=== PATIENT | male | born 1950 | race Caucasian/White ===

== ENCOUNTER 2017-07-27 17:26 | Emergency (ER) | payer BC, OTHER ==
[~2017-07-27] VITALS: Ht 165.1 cm; Wt 98.7 kg
[~2017-07-27 17:26] MED LIST: Z.0.NO CURRENT MEDS
[2017-07-27 17:34] VITALS: BP 130/74; PULSE 67; RESP 16; TEMP 98.2; O2SAT 95
[2017-07-27] MEDS ORDERED: HTN MED (17:43)
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
[2017-07-27] MEDS ORDERED: KETOROLAC TROMETHAMINE 60 MG/2 ML (IM) VIAL IM ONE ×2 (20:30→21:00)
--- NOTE | 2017-07-27 20:36 | RADRPT ---
EXAM DATE/TIME: 07/27/2017 19:52 [facility] COMPARISON: HIP RIGHT (AP&LAT 2/3VWS) W AP PELVIS, July 27, 2017, 18:36. INDICATIONS : Right hip pain. RADIATION DOSE: 21.64 CTDIvol (mGy) MEDICAL HISTORY : None SURGICAL HISTORY : Right lower extremity reattachment. ENCOUNTER: Initial ACUITY: 4 - 6 days PAIN SCALE: 10/10 LOCATION: Right hip TECHNIQUE: Volumetric scanning of the hip was performed. Using automated exposure control and adjustment of the mA and/or kV according to patient size, radiation dose was kept as low as reasonably achievable to o btain optimal diagnostic quality images. DICOM format image data is available electronically for rev iew and comparison. FINDINGS: BONES: No evidence of fracture. Alignment is within normal limits. There is chronic deformity seen at the s uperior lateral aspects of the iliac crest regions bilaterally being more prominent on the right. Deg enerative changes seen in the lower lumbar spine. JOINTS: No evidence of joint narrowing or effusion. SOFT TISSUES: Muscles, tendons and neurovascular structures are grossly unremarkable. No evidence of mass, organize d fluid collection, or foreign body. CONCLUSION: No acute fracture is seen. There is chronic deformity at the superior lateral iliac crest regions teo ng more prominent on the right. Dick Clark MD on July 27, 2017 at 20:32 Board Certified Radiologist. This report was verified electronically.
[2017-07-27] MEDS ORDERED: MEDR4PAK PO (20:55)
[2017-07-27] MEDS ORDERED: TRAM50TA PO (20:56)
== END 2017-07-27 21:19 | disposition home or self-care (01) ==
LOC: PHEFT 17:26
DX: M54.31 Sciatica, right side (principal); I10 Essential (primary) hypertension
CPT/HCPCS: 73502; 73700; 96372; 99285; J1885

== ENCOUNTER 2017-09-09 11:59 | Inpatient (IN) | payer OTHER, MEDICARE ==
[~2017-09-09] VITALS: Ht 165.1 cm; Wt 97.8 kg
[~2017-09-09 11:59] MED LIST changes: +HTN MED; +MEDR4PAK PO; +TRAM50TA PO; -Z.0.NO CURRENT MEDS
[2017-09-09 12:08] VITALS: BP 134/70; PULSE 83; RESP 16; TEMP 99.9; O2SAT 96
[2017-09-09] MEDS ORDERED: AMLO5TAB2 PO (12:56)
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
[2017-09-09] MEDS ORDERED: CLINDAMYCIN INJ 600 MG in SODIUM CHLORIDE 0.9% INJ 100 ML IV ONE (13:30)
[2017-09-09 13:39] LABS: AUTOMATED NEUTROPHIL # 5.5 TH/MM3 (1.8-7.7); BASOPHIL # 0.1 TH/MM3 (0-0.2); BASOPHIL % 1.4 % (0.0-2.0); EOSINOPHIL # 0.2 TH/MM3 (0-0.4); EOSINOPHIL % 1.9 % (0.0-4.0); HEMATOCRIT 45.4 % (39.0-51.0); HEMO FLAGS DIFF FINAL; LYMPH % 22.3 % (9.0-44.0); LYMPHOCYTE # 1.9 TH/MM3 (1.0-4.8); MEAN CELL VOLUME 94.8 FL (80.0-100.0); MEAN CORPUSCULAR HEMOGLOBIN 31.4 PG (27.0-34.0); MEAN CORPUSCULAR HGB CONC 33.2 % (32.0-36.0); MONO % 9.9 % (0.0-8.0); NEUT % 64.5 % (16.0-70.0); PLATELET COUNT 241 TH/MM3 (150-450); RED BLOOD COUNT 4.79 MIL/MM3 (4.50-5.90); RED CELL DISTRIBUTION WIDTH 14.6 % (11.6-17.2); WHITE BLOOD COUNT 8.5 TH/MM3 (4.0-11.0)
--- NOTE | 2017-09-09 13:48 | RADRPT ---
EXAM DATE/TIME: 09/09/2017 13:27 [facility] COMPARISON: HIP RIGHT (AP&LAT 2/3VWS) W AP PELVIS, July 27, 2017, 18:36. INDICATIONS : Right lower leg pain and reddness possible infection. MEDICAL HISTORY : Fracture right lower leg. SURGICAL HISTORY : Right lower leg reattachment. ENCOUNTER: Initial ACUITY: 1 month PAIN SCORE: 6/10 LOCATION: Right anterior lower leg. FINDINGS: The appearance of the tibia is grossly abnormal. There is an old fracture of the tibia. There is exte nsive heterotopic bone. There is fracture of the fibula as well. The tibia and fibula have fused toge ther. Due to the irregularity of the cortical surface I cannot exclude an underlying osteomyelitis. There severe degenerative changes in the tibiotalar joint. The talus is not identified presumably rep resenting a collar dome fracture. The ankle mortise is fused. CONCLUSION: 1. There is an old, severe fracture involving the tibia, fibula, the ankle and right foot. There is e xtensive heterotopic bone. There is some areas of cortical irregularity and as such an underlying ost eomyelitis cannot be excluded. Kun Buitrago MD on September 09, 2017 at 13:45 Board Certified Radiologist. This report was verified electronically.
[2017-09-09 13:50] LABS: BICARBONATE 26.3 MEQ/L (21.0-32.0)
[2017-09-09 13:56] LABS: POTASSIUM 3.9 MEQ/L (3.5-5.1)
[2017-09-09 14:38] VITALS: BP 186/89; PULSE 61; RESP 16; O2SAT 97
[2017-09-09] MEDS ORDERED: SODIUM CHLORIDE 0.9% FLUSH 10 ML FLUSH IV FLUSH PRN (14:45)
[2017-09-09] MEDS ORDERED: VANCOMYCIN INJ 1,450 MG in SODIUM CHLORID 0.9% 500 ML INJ 500 ML IV ONE (14:45)
[2017-09-09] MEDS ORDERED: LACTULOSE SYRUP 20 GM/30 ML CUP PO PRN (14:45)
[2017-09-09] MEDS ORDERED: BISACODYL 10 MG SUPP RECTAL PRN (14:45)
[2017-09-09] MEDS ORDERED: NALOXONE HCL 0.4 MG/ML AMP IV PUSH PRN (14:45)
[2017-09-09] MEDS ORDERED: MAGNESIUM HYDROXIDE SUSP 30 ML CUP PO PRN (14:45)
[2017-09-09] MEDS ORDERED: ONDANSETRON HCL 4 MG/2 ML VIAL IVP PRN (14:45)
[2017-09-09] MEDS ORDERED: ACETAMINOPHEN 325 MG TAB PO PRN (14:45)
[2017-09-09] MEDS ORDERED: TETANUS/DIPHTHERIA TOXOID ADULT 0.5 ML VIAL IM ONE (15:15)
[2017-09-09] MEDS ORDERED: Vancomycin Consult Pharmacy 1 EA OTHER SCH (15:45)
[2017-09-09] MEDS ORDERED: ENALAPRILAT 1.25 MG/ML VIAL IV PUSH PRN (15:45)
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
[2017-09-09 16:14] VITALS: BP 131/67
[2017-09-09 16:47] VITALS: BP 163/95; PULSE 63; RESP 18; TEMP 98.1; O2SAT 97
[2017-09-09] MEDS ORDERED: cloNIDine HCL 0.1 MG TAB PO PRN (17:45)
[2017-09-09] MEDS: HEPARIN SODIUM - SQ 10,000 UNITS/ML VIAL SQ SCH (18:14)
[2017-09-09 20:00] VITALS: BP 143/84; PULSE 64; RESP 18; TEMP 96.9; O2SAT 95
[2017-09-09] MEDS ORDERED: LISI10TA PO (21:01)
[2017-09-09] MEDS ORDERED: CARB25TA9 PO (21:01)
[2017-09-09] MEDS: SODIUM CHLORIDE 0.9% FLUSH 10 ML FLUSH IV FLUSH SCH (21:55)
[2017-09-10] MEDS: VANCOMYCIN INJ 1,600 MG in SODIUM CHLORID 0.9% 500 ML INJ 500 ML IV SCH ×2 (00:15→12:43)
[2017-09-10 05:25] LABS: AUTOMATED NEUTROPHIL # 3.6 TH/MM3 (1.8-7.7); BASOPHIL % 0.3 % (0.0-2.0); EOSINOPHIL # 0.2 TH/MM3 (0-0.4); HEMATOCRIT 43.8 % (39.0-51.0); HEMO FLAGS DIFF FINAL; LYMPH % 28.6 % (9.0-44.0); LYMPHOCYTE # 1.9 TH/MM3 (1.0-4.8); MEAN CELL VOLUME 94.4 FL (80.0-100.0); MEAN CORPUSCULAR HEMOGLOBIN 30.8 PG (27.0-34.0); MEAN CORPUSCULAR HGB CONC 32.6 % (32.0-36.0); MONO % 11.7 % (0.0-8.0); NEUT % 56.4 % (16.0-70.0); PLATELET COUNT 194 TH/MM3 (150-450); RED BLOOD COUNT 4.64 MIL/MM3 (4.50-5.90); RED CELL DISTRIBUTION WIDTH 13.6 % (11.6-17.2); WHITE BLOOD COUNT 6.5 TH/MM3 (4.0-11.0)
[2017-09-10 05:38] LABS: POTASSIUM 3.7 MEQ/L (3.5-5.1)
[2017-09-10] MEDS: HEPARIN SODIUM - SQ 10,000 UNITS/ML VIAL SQ SCH ×2 (05:39→17:29)
[2017-09-10 05:40] LABS: BICARBONATE 29.2 MEQ/L (21.0-32.0)
[2017-09-10] MEDS: SODIUM CHLORIDE 0.9% FLUSH 10 ML FLUSH IV FLUSH SCH (07:06)
[2017-09-10 08:00] VITALS: BP 131/79; PULSE 72; RESP 14; TEMP 96.9; O2SAT 94
[2017-09-10] MEDS ORDERED: LISINOPRIL 10 MG TAB PO SCH (09:00)
[2017-09-10] MEDS ORDERED: HYDROCHLOROTHIAZIDE 25 MG TAB PO SCH (09:00)
[2017-09-10] MEDS ORDERED: NON-FORMULARY DRUG (Lisinopril-Hctz 1 TAB) PO SCH ×2 (09:00)
[2017-09-10] MEDS ORDERED: amLODIPine BESYLATE 5 MG TAB PO SCH (09:00)
[2017-09-10] MEDS ORDERED: CARBIDOPA/LEVODOPA 25 MG/100 MG TAB PO SCH ×2 (09:00)
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
--- NOTE | 2017-09-10 10:08 | HHI.PR ---
Subjective Remarks Patient reports is feeling okay. He believes the redness is slightly better today. Objective Vitals Vital Signs Date Time Temp Pulse Resp B/P (MAP) Pulse Ox O2 Delivery O2 Flow Rate FiO2 09/10/17 08:00 96.9 72 14 131/79 (96) 94 09/09/17 20:00 96.9 64 18 143/84 (103) 95 09/09/17 16:47 98.1 63 18 163/95 (117) 97 09/09/17 16:14 57 16 131/67 (88) 95 09/09/17 14:38 61 16 186/89 (121) 97 Room Air 09/09/17 12:08 99.9 83 16 134/70 (91) 96 I/O 09/09/17 09/09/17 09/09/17 09/10/17 09/10/17 09/10/17 07:00 15:00 23:00 07:00 15:00 23:00 Intake Total 100 ml 514.5 ml 960 ml 222 ml Balance 100 ml 514.5 ml 960 ml 222 ml Intake Oral 460 ml 222 ml IV Total 100 ml 514.5 ml 500 ml # Voids 1 3 # Bowel Movements 0 Result Diagram: 09/10/17 0453 09/10/17 0453 Imaging Last Impressions Tibia/Fibula X-Ray 09/09/17 0000 Signed Impressions: Service Date/Time: August 13:27 - CONCLUSION: 1. There is an old, severe fracture involving the tibia, fibula, the ankle and right foot. 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 There is some areas of cortical irregularity and as such an underlying osteomyelitis cannot be excluded. Kun Buitrago MD Objective Remarks GENERAL: This is a well-nourished, well-developed patient, in no apparent distress. SKIN: Right lower leg, there is a puncture wound on the right gómez, no active drainage. There is surrounding erythema extending down to the ankle. Extensive scars from previous reconstruction surgery. 2+ edema of the right foot. CARDIOVASCULAR: Normal rate and regular rhythm without murmurs, gallops, or rubs. RESPIRATORY: Good respiratory efforts. Breath sounds equal and clear to auscultation bilaterally. GASTROINTESTINAL: Abdomen soft, non-tender, non-distended. Normal active bowel sounds MUSCULOSKELETAL: Extremities without cyanosis NEURO: Alert & Oriented x4 to person, place, time, situation. Moves all ext x4 PSYCH: Appropriate mood and affect. A/P Problem List: (1) Cellulitis ICD Code: L03.90 - Cellulitis, unspecified Status: Acute (2) Hypertension ICD Code: I10 - Essential (primary) hypertension Assessment and Plan 66-year-old male with history of extensive reconstructive surgery on the right leg presents with cellulitis and concern for osteomyelitis. Cellulitis, concern for osteomyelitis: Extensive cellulitis on exam. Cannot rule out osteomyelitis. He reports rapid spreading of cellulitis over the past couple of days. -Infectious disease has been consulted, recommended MRI to better evaluate for osteomyelitis -Continue IV vancomycin, Cipro was added. Continue to monitor cultures Hypertension: Continue amlodipine - Vasotec as needed. GI prophylaxis:Stool softener PRN constipation. DVT PPx: Heparin Problem Qualifiers (1) Cellulitis: Qualified Codes: L03.115 - Cellulitis of right lower limb Mario More MD Sep 10, 2017 10:08
[2017-09-10 12:00] VITALS: BP 159/92; PULSE 81; RESP 14; TEMP 97.2; O2SAT 94
[2017-09-10] MEDS: CARBIDOPA/LEVODOPA 25 MG/100 MG TAB PO SCH ×2 (12:43→17:29)
[2017-09-10] MEDS: SENNOSIDES 8.6 MG TAB PO PRN (12:45)
[2017-09-10] MEDS ORDERED: GADODIAMIDE PF 287 MG/ML 20 ML VIAL (for RAD MRI) IV PUSH ONE (15:38)
[2017-09-10] MEDS ORDERED: VANCOMYCIN INJ 1,250 MG in SODIUM CHLOR 0.9% 250 ML INJ 250 ML IV SCH (15:45)
[2017-09-10 16:00] VITALS: BP 130/79; PULSE 67; RESP 16; TEMP 96.5; O2SAT 93
--- NOTE | 2017-09-10 16:14 | RADRPT ---
EXAM DATE/TIME: 09/10/2017 15:25 [facility] COMPARISON: TIBIA/FIBULA RIGHT (AP/LAT), September 09, 2017, 13:27. INDICATIONS : Swelling and redness mid right tibia. CONTRAST: 20 cc Omniscan (gadodiamide) IV MEDICAL HISTORY : Hypertension. SURGICAL HISTORY : Right leg reconstruction 1957. Right rotator cuff. ENCOUNTER: Initial ACUITY: 3 day PAIN SCORE: 4/10 LOCATION: Right leg TECHNIQUE: Multiplanar multisequence MRI examination of the lower leg was performed with and without contrast. FINDINGS: The old fracture deformity and reconstruction of the mid tibia is again visualized with cortical thic kening and irregularity. There is no abnormal marrow signal or abnormal enhancement within the marrow . There is evidence of soft tissue edema and mild enhancement with no abnormal fluid collection or ev idence of an abscess. CONCLUSION: 1. No evidence of osteomyelitis or abscess. 2. Old fracture deformity with cortical thickening and irregularity. 3. Soft tissue edema. Josué Rothman MD on September 10, 2017 at 16:05 Board Certified Radiologist. This report was verified electronically.
[2017-09-10 20:00] VITALS: BP 134/81; PULSE 51; RESP 16; TEMP 97.1; O2SAT 95
[2017-09-11] VITALS: BP 131/76; PULSE 54; RESP 18; TEMP 98.4; O2SAT 96
[2017-09-11] MEDS: VANCOMYCIN INJ 1,600 MG in SODIUM CHLORID 0.9% 500 ML INJ 500 ML IV SCH ×3 (00:03→23:59)
[2017-09-11] MEDS: SODIUM CHLORIDE 0.9% FLUSH 10 ML FLUSH IV FLUSH SCH ×3 (00:03→23:59)
[2017-09-11] MEDS: LISINOPRIL 10 MG TAB PO SCH (06:24)
[2017-09-11] MEDS: HYDROCHLOROTHIAZIDE 25 MG TAB PO SCH (06:24)
[2017-09-11] MEDS: CARBIDOPA/LEVODOPA 25 MG/100 MG TAB PO SCH ×3 (06:24→17:38)
[2017-09-11] MEDS: HEPARIN SODIUM - SQ 10,000 UNITS/ML VIAL SQ SCH ×2 (06:25→17:38)
[2017-09-11] MEDS: amLODIPine BESYLATE 5 MG TAB PO SCH (06:25)
[2017-09-11] MEDS: SENNOSIDES 8.6 MG TAB PO PRN (06:27)
[2017-09-11 08:00] VITALS: BP 140/81; PULSE 61; RESP 18; TEMP 96.6; O2SAT 92
[2017-09-11] MEDS ORDERED: PHARMACY ORDERED LAB ONE (11:45)
[2017-09-11 13:00] VITALS: BP 159/92; PULSE 67; RESP 18; TEMP 96.5; O2SAT 92
--- NOTE | 2017-09-11 15:12 | HHI.PR ---
Objective Vitals Vital Signs Date Time Temp Pulse Resp B/P (MAP) Pulse Ox O2 Delivery O2 Flow Rate FiO2 09/11/17 13:00 96.5 67 18 159/92 (114) 92 09/11/17 08:00 96.6 61 18 140/81 (100) 92 09/11/17 00:00 98.4 54 18 131/76 (94) 96 09/10/17 20:00 97.1 51 16 134/81 (98) 95 09/10/17 16:00 96.5 67 16 130/79 (96) 93 I/O 09/10/17 09/10/17 09/10/17 09/11/17 09/11/17 09/11/17 07:00 15:00 23:00 07:00 15:00 23:00 Intake Total 960 ml 222 ml 970 ml 760 ml Balance 960 ml 222 ml 970 ml 760 ml Intake Oral 460 ml 222 ml 444 ml 240 ml IV Total 500 ml 526 ml 520 ml # Voids 3 14 3 # Bowel Movements 0 1 1 Result Diagram: 09/10/1745209/10/17452 Objective Remarks GENERAL: Well-nourished, well-developed pleasant CM patient. SKIN: Warm and dry. HEAD: Normocephalic. EYES: No scleral icterus. No injection or drainage. NECK: Supple, trachea midline. No JVD or lymphadenopathy. CARDIOVASCULAR: Regular rate and rhythm without murmurs, gallops, or rubs. RESPIRATORY: Breath sounds equal bilaterally. No accessory muscle use. GASTROINTESTINAL: Abdomen soft, non-tender, nondistended. EXTREMITIES: RLE with chronic deformity, small wound on gómez without drainage, dull erythema of anterior gómez extending to upper ankle - No edema. NEUROLOGICAL: Awake, alert, and oriented x 3. Non-focal. A/P Problem List: (1) Cellulitis ICD Code: L03.90 - Cellulitis, unspecified Status: Acute (2) Hypertension ICD Code: I10 - Essential (primary) hypertension Assessment and Plan 66-year-old male with history of extensive reconstructive surgery on the right leg presents with cellulitis and concern for osteomyelitis. Cellulitis of RLE, MRI negative for osteomyelitis: He reported rapid spreading of cellulitis over the past couple of days. improving on exam Continue IV vancomycin, Cipro was added. -wound culture +MRSA, serratia marescens Hypertension: Continue amlodipine - Vasotec as needed. GI prophylaxis:Stool softener PRN constipation. DVT PPx: Heparin Problem Qualifiers (1) Cellulitis: Qualified Codes: L03.115 - Cellulitis of right lower limb Keira Ragland MD Sep 11, 2017 15:12
[2017-09-11 16:00] VITALS: BP 134/81; PULSE 62; RESP 16; TEMP 97; O2SAT 93
[2017-09-11] MEDS ORDERED: Vancomycin Consult Pharmacy 1 EA OTHER SCH (19:45)
[2017-09-11 20:00] VITALS: BP 131/79; PULSE 58; RESP 20; TEMP 97.7; O2SAT 96
[2017-09-12] VITALS: BP 137/86; PULSE 57; RESP 20; TEMP 96.4; O2SAT 96
[2017-09-12 04:00] VITALS: BP 121/75; PULSE 54
[2017-09-12] MEDS: HYDROCHLOROTHIAZIDE 25 MG TAB PO SCH (05:04)
[2017-09-12] MEDS: LISINOPRIL 10 MG TAB PO SCH (05:04)
[2017-09-12] MEDS: HEPARIN SODIUM - SQ 10,000 UNITS/ML VIAL SQ SCH ×2 (05:04→17:30)
[2017-09-12] MEDS: amLODIPine BESYLATE 5 MG TAB PO SCH (05:04)
[2017-09-12] MEDS: CARBIDOPA/LEVODOPA 25 MG/100 MG TAB PO SCH ×3 (05:12→17:30)
[2017-09-12] MEDS: SENNOSIDES 8.6 MG TAB PO PRN (05:12)
[2017-09-12 08:41] VITALS: BP 122/78; PULSE 63; RESP 16; O2SAT 96
[2017-09-12] MEDS: SODIUM CHLORIDE 0.9% FLUSH 10 ML FLUSH IV FLUSH SCH ×2 (09:00→20:06)
[2017-09-12] MEDS: VANCOMYCIN INJ 2,000 MG in SODIUM CHLORID 0.9% 500 ML INJ 500 ML IV SCH ×2 (10:45→23:36)
[2017-09-12 12:00] VITALS: BP_SYST 141; BP_SYST 147; BP_SYST 151; BP_DIAS 82; BP_DIAS 92; BP_DIAS 93; PULSE 64; PULSE 79; PULSE 90; RESP 18; TEMP 98.2; O2SAT 95; O2SAT 98
--- NOTE | 2017-09-12 13:49 | HHI.PR ---
Subjective Remarks Patient states right lower extremity is improved. No pain. He feels the redness is improved. Objective Vitals Vital Signs Date Time Temp Pulse Resp B/P (MAP) Pulse Ox O2 Delivery O2 Flow Rate FiO2 09/12/17 12:00 98.2 64 18 141/82 (101) 98 09/12/17 08:41 63 16 122/78 (93) 96 09/12/17 04:00 54 121/75 (90) 09/12/17 00:00 96.4 57 20 137/86 (103) 96 09/11/17 20:00 97.7 58 20 131/79 (96) 96 09/11/17 16:00 97.0 62 16 134/81 (98) 93 I/O 09/11/17 09/11/17 09/11/17 09/12/17 09/12/17 09/12/17 07:00 15:00 23:00 07:00 15:00 23:00 Intake Total 760 ml 1716 ml 0 ml Balance 760 ml 1716 ml 0 ml Intake Oral 240 ml 1200 ml 0 ml IV Total 520 ml 516 ml # Voids 3 8 3 # Bowel Movements 1 3 Result Diagram: 09/10/1745209/10/17 0453 Objective Remarks GENERAL: Well-nourished, well-developed pleasant CM patient. SKIN: Warm and dry. HEAD: Normocephalic. EYES: No scleral icterus. No injection or drainage. NECK: Supple, trachea midline. No JVD or lymphadenopathy. CARDIOVASCULAR: Regular rate and rhythm without murmurs, gallops, or rubs. RESPIRATORY: Breath sounds equal bilaterally. No accessory muscle use. GASTROINTESTINAL: Abdomen soft, non-tender, nondistended. EXTREMITIES: RLE with chronic deformity, small wound on gómez without drainage, dull erythema of anterior gómez - improved from yesterday - No edema. NEUROLOGICAL: Awake, alert, and oriented x 3. Non-focal. A/P Problem List: (1) Cellulitis ICD Code: L03.90 - Cellulitis, unspecified Status: Acute (2) Hypertension ICD Code: I10 - Essential (primary) hypertension Assessment and Plan 66-year-old male with history of extensive reconstructive surgery on the right leg presents with cellulitis and concern for osteomyelitis. Cellulitis of RLE, MRI negative for osteomyelitis: He reported rapid spreading of cellulitis over the past couple of days. improving on exam Continue IV vancomycin, Cipro was added. -wound culture +MRSA, serratia marescens Hypertension: Continue amlodipine - Vasotec as needed. GI prophylaxis:Stool softener PRN constipation. DVT PPx: Heparin Problem Qualifiers (1) Cellulitis: Qualified Codes: L03.115 - Cellulitis of right lower limb Keira Ragland MD Sep 12, 2017 13:49
[2017-09-12] MEDS: CIPROFLOXACIN 500 MG TAB PO SCH ×2 (14:04→20:08)
[2017-09-12 16:00] VITALS: BP 113/73; PULSE 64; RESP 18; O2SAT 94
[2017-09-12 20:01] VITALS: BP 143/95; PULSE 79; RESP 17; TEMP 97.7; O2SAT 98
[2017-09-13] VITALS: BP 136/92; PULSE 81; RESP 18; TEMP 97.5; O2SAT 99
[2017-09-13] MEDS: HYDROCHLOROTHIAZIDE 25 MG TAB PO SCH (06:05)
[2017-09-13] MEDS: amLODIPine BESYLATE 5 MG TAB PO SCH (06:06)
[2017-09-13] MEDS: CARBIDOPA/LEVODOPA 25 MG/100 MG TAB PO SCH ×2 (06:07→11:16)
[2017-09-13] MEDS: LISINOPRIL 10 MG TAB PO SCH (06:07)
[2017-09-13] MEDS: HEPARIN SODIUM - SQ 10,000 UNITS/ML VIAL SQ SCH (06:08)
[2017-09-13] MEDS: SENNOSIDES 8.6 MG TAB PO PRN (06:20)
[2017-09-13 08:00] VITALS: BP 143/85; PULSE 61; RESP 16; TEMP 97.6; O2SAT 95
[2017-09-13] MEDS: CIPROFLOXACIN 500 MG TAB PO SCH (08:51)
[2017-09-13] MEDS: SODIUM CHLORIDE 0.9% FLUSH 10 ML FLUSH IV FLUSH SCH (08:51)
--- NOTE | 2017-09-13 08:55 | PD.WCN.NOT ---
Wound Consult Description: Consult for Wound Management of right leg per KING Chun Communicated with: Eliza Hernandez RN Recommendation: Scab on right anterior lower leg may be left open to air and sprayed with Cavilon skin prep BID and PRN to keep dry. If scab becomes open and/or draining and requires a dressing please nancy transportation analyst. Thank You Additional Information: Patient not seen for dry scab per Eliza Hernandez RN. Judith Hairston [facility] Sep 13, 2017 08:55
[2017-09-13] MEDS ORDERED: LEVOFLOXACIN 750 MG TAB PO SCH (09:45)
--- NOTE | 2017-09-13 10:00 | HHI.PR ---
Subjective Remarks Follow-up right lower extremity cellulitis 09/13/17-patient seen and examined, denies any right lower extremity pain. Reports improvement of right lower extremity cellulitis. Currently afebrile. He is wondering if can be discharged before Thanksgiving Objective Vitals Vital Signs Date Time Temp Pulse Resp B/P (MAP) Pulse Ox O2 Delivery O2 Flow Rate FiO2 09/13/17 08:00 97.6 61 16 143/85 (104) 95 09/13/17 00:00 97.5 81 18 136/92 (107) 99 09/12/17 20:01 97.7 79 17 143/95 (111) 98 09/12/17 16:00 64 18 113/73 (86) 94 09/12/17 12:00 98.2 64 18 141/82 (101) 98 I/O 09/12/17 09/12/17 09/12/17 09/13/17 09/13/17 09/13/17 07:00 15:00 23:00 07:00 15:00 23:00 Intake Total 0 ml 1452 ml 780 ml Balance 0 ml 1452 ml 780 ml Intake Oral 0 ml 420 ml 280 ml IV Total 1032 ml 500 ml # Voids 3 4 3 # Bowel Movements 1 Result Diagram: 09/10/17 0453 09/10/17 0453 Imaging Last Impressions Lower Extremity MRI 09/10/17 0000 Signed Impressions: Service Date/Time: Sunday, September 10, 2017 15:25 - CONCLUSION: 1. No evidence of osteomyelitis or abscess. 2. Old fracture deformity with cortical thickening and irregularity. 3. Soft tissue edema. Josué Rothman MD Tibia/Fibula X-Ray 09/09/17 0000 Signed Impressions: Service Date/Time: August 13:27 - CONCLUSION: 1. There is an old, severe fracture involving the tibia, fibula, the ankle and right foot. 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 There is some areas of cortical irregularity and as such an underlying osteomyelitis cannot be excluded. Kun Buitrago MD Objective Remarks GENERAL: NAD SKIN: Warm and dry. Erythema right lower extremity HEAD: Normocephalic. EYES: No scleral icterus. No injection or drainage. NECK: Supple, trachea midline. No JVD or lymphadenopathy. CARDIOVASCULAR: Regular rate and rhythm without murmurs, gallops, or rubs. RESPIRATORY: Breath sounds equal bilaterally. No accessory muscle use. GASTROINTESTINAL: Abdomen soft, non-tender, nondistended. MUSCULOSKELETAL: No cyanosis, or edema. BACK: Nontender without obvious deformity. No CVA tenderness. Procedures None A/P Problem List: (1) Cellulitis ICD Code: L03.90 - Cellulitis, unspecified Status: Acute (2) Hypertension ICD Code: I10 - Essential (primary) hypertension Assessment and Plan 66-year-old man with Right lower extremity cellulitis Wound culture positive for MRSA and Serratia Marescens s/p vancomycin and Cipro, and now on Levaquin MRI negative for osteomyelitis Appreciate input from infectious disease specialist Right lower extremity open wounds Appreciate input from wound care nurse Continue with current recommendation including Scab on right anterior lower leg may be left open to air and sprayed with Cavilon skin prep BID and PRN to keep dry DVT prophylaxis: Heparin Problem Qualifiers (1) Cellulitis: Qualified Codes: L03.115 - Cellulitis of right lower limb Raj Addison MD Sep 13, 2017 10:00
--- NOTE | 2017-09-13 11:26 | HHI.DS ---
Discharge Summary Admission Date Sep 09, 2017 at 14:44 Discharge Date: Sep 13, 2017 Admitting Diagnosis Cellulitis, possible osteomyelitis (1) Cellulitis ICD Code: L03.90 - Cellulitis, unspecified Status: Acute (2) Hypertension ICD Code: I10 - Essential (primary) hypertension Procedures None Brief History - From Admission 66-year-old male with a medical history significant for hypertension who presented with complaints of worsening right leg infection. The patient has had extensive injury involving the right leg when he was 7 years old. He has had extensive reconstructive surgery. Involving the tibia, fibula, and ankle. In 2006 he had a recurrent tib-fib fractures which was treated conservatively with a cast. Patient reports he occasionally bumps the leg but it always healed. However a couple of months ago he bumped the right gómez on a chair. He has since developed a puncture wound that has been worsening and draining. Patient has been putting peroxide and bandage on it. Over the past couple of days, he has developed redness that has been spreading down to his ankle. He denies fevers or chills. X-rays in the emergency room revealed the old fractures, cannot rule out osteomyelitis CBC/BMP: 09/10/17 0453 09/10/17 0453 Significant Findings Laboratory Tests Test 09/11/17 11:45 09/12/17 06:30 Vancomycin Level Trough 41.3 MCG/ML (5.0-10.0) Imaging Last Impressions Lower Extremity MRI 09/10/17 0000 Signed Impressions: Service Date/Time: Sunday, September 10, 2017 15:25 - CONCLUSION: 1. No evidence of osteomyelitis or abscess. 2. Old fracture deformity with cortical thickening and irregularity. 3. Soft tissue edema. Josué Rothman MD Tibia/Fibula X-Ray 09/09/17 0000 Signed Impressions: Service Date/Time: August 13:27 - CONCLUSION: 1. There is an old, severe fracture involving the tibia, fibula, the ankle and right foot. 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 There is some areas of cortical irregularity and as such an underlying osteomyelitis cannot be excluded. Kun Buitrago MD PE at Discharge GENERAL: NAD SKIN: Warm and dry. Erythema right lower extremity HEAD: Normocephalic. EYES: No scleral icterus. No injection or drainage. NECK: Supple, trachea midline. No JVD or lymphadenopathy. CARDIOVASCULAR: Regular rate and rhythm without murmurs, gallops, or rubs. RESPIRATORY: Breath sounds equal bilaterally. No accessory muscle use. GASTROINTESTINAL: Abdomen soft, non-tender, nondistended. MUSCULOSKELETAL: No cyanosis, or edema. BACK: Nontender without obvious deformity. No CVA tenderness. Hospital Course Patient admitted secondary to right lower extremity cellulitis for which she was started on IV antibiotics with consultation to infectious disease specialist. Culture were obtained and patient was switched prior to discharge to by mouth Levaquin which patient will complete for total 10-14 days. He was continued on his treatment for hypertension. DVT and GI prophylaxis were provided. Prior to discharge, patient's condition improved and vitals remaine stable. Pt Condition on Discharge: Stable Discharge Disposition: Disch w/ Home Health Serv Discharge Time: > 30 minutes Discharge Instructions DIET: Follow Instructions for: Heart Healthy Diet Activities you can perform: Regular-No Restrictions Follow up Referrals: PCP Follow-up - 1 Week New Medications: Lactobacillus Acidophilus (Lactinex) 1 Chew 1 TAB CHEW DAILY for Nutritional Supplement, #30 TAB 0 Refills Levofloxacin (Levaquin) 750 Mg Tablet 750 MG PO DAILY for Infection, #13 MG Continued Medications: Amlodipine (Amlodipine) 5 Mg Tab 5 MG PO DAILY for Blood Pressure Management, #30 TAB 0 Refills Carbidopa-Levodopa (Carbidopa-Levodopa) 25-100 Mg Tab 2 TAB PO TID for Parkinson Disease Mgmt, #90 TAB 0 Refills Lisinopril-Hctz (Lisinopril-Hctz) 10-12.5 Mg Tab 1 TAB PO DAILY for Blood Pressure Management, #30 TAB 0 Refills Raj Addison MD Sep 13, 2017 11:26
--- NOTE | 2017-09-13 11:27 | HHI.FF ---
Face to Face Verification Diagnosis: (1) Hypertension (2) Cellulitis Physical Therapy Order: Evaluate and Treat Home Health Nursing Order: Wound care and dressing changes Instructions: Scab on right anterior lower leg may be left open to air and sprayed with Cavilon skin prep BID and PRN to keep dry I have seen patient Jaxson Roque on 09/13/17. My clinical findings support the need for the requested home health care services because: Deconditioned w/ increased weakness I certify that my clinical findings support that this patient is homebound because: Poor cardiac reserve Raj Addison MD Sep 13, 2017 11:27
[2017-09-13] MEDS ORDERED: LACTCHW3 CHEW (11:29)
[2017-09-13] MEDS ORDERED: LEVA750T9 PO (11:29)
[2017-09-13 12:00] VITALS: BP 144/90; PULSE 72; RESP 16; TEMP 97.8; O2SAT 96
[2017-09-13] MEDS ORDERED: PHARMACY ORDERED LAB ONE (23:45)
== END 2017-09-13 14:15 | disposition home or self-care (01) | DRG 603 ==
LOC: PHED 11:59 → PHEDA 14:34 → OBSVTOIN 14:44 → PH3B 16:19
PROVIDERS: ADMIT Hospitalist; ATTEND Hospitalist
DX: L03.115 Cellulitis of right lower limb (principal); G62.9 Polyneuropathy, unspecified; I10 Essential (primary) hypertension; S81.831A Puncture wound without foreign body, right lower leg, initial encounter; B95.62 Methicillin resistant Staphylococcus aureus infection as the cause of diseases classified elsewhere; M19.90 Unspecified osteoarthritis, unspecified site; B96.89 Other specified bacterial agents as the cause of diseases classified elsewhere
CPT/HCPCS: 73590; 73720; 80048; 80202; 82948; 83605; 85025; 85652; 86140; 87040; 87070; 87077; 87147; 87186; 87205; 90714; 96365; A9579; J1644; J3370; J7040